=== PATIENT | male | born 1970 ===

== ENCOUNTER 2016-11-18 18:47 | Emergency (ER) | payer SELFPAY ==
--- NOTE | ~2016-11-18 | ER ---
ADMIT: 11/18/2016 RM/LOC: [facility] MR#: [id number] [address] [place] [id number] ROSIBEL YEBOAHSHAMA [address] [place] [address] Emergency Room Report SEX: M AGE: 46 : 1970 DATE: 11/18/2016 CHIEF COMPLAINT: Left shoulder pain. HISTORY OF PRESENT ILLNESS: The patient is a 46-year-old male, states that he was lifting a couch yesterday when he felt a pop in his left shoulder and has had increasing pain with range of motion of that shoulder since then. He states that several years ago he had a shoulder dislocation and ended up having some sort of surgery when he was in [place], but cannot describe it to me. He has had no numbness, tingling, or weakness down the arm, has no loss of strength, but has pain with abduction of the arm at the shoulder. PAST MEDICAL HISTORY: Negative. PAST SURGICAL HISTORY: Left shoulder surgery with a dislocation. SOCIAL HISTORY: Smokes. Denies drug or alcohol use. MEDICATIONS: None. ALLERGIES: NONE. PHYSICAL EXAMINATION: GENERAL: The patient is alert and oriented, in no distress. EXTREMITIES: Examination of his left upper extremity reveals, he has some tenderness on his lateral deltoid and some in his AC joint space. He has no swelling and no skin lesions. He has a good pulse distally in that arm and has no sensory deficit. He has no pain with range of motion of the wrist or elbow. He does have pain with passive and active range of motion of his left shoulder. He has no cervical tenderness. ADMIT: 11/18/2016 RM/LOC: [facility] MR#: [id number] [address] [place] [id number] SHAMA CHAMPAGNE [address] [place] [address] Emergency Room Report SEX: M AGE: 46 : 1970 DIAGNOSTIC DATA: X-rays of the left shoulder revealed no acute abnormality. MEDICAL DECISION MAKING: Based on the patient's mechanism, I believe he has muscle strain or possibly rotator cuff injury. He has no dislocation or fracture at this time. He is off work for the next 2 weeks, so he is told to go home and rest and use ibuprofen 3 times a day and follow up in the next 1- 1/2 to 2 weeks if he does not have significant improvement in his symptoms. He is given Dr. Prajapati for followup as he does not have a doctor, and Dr. Prajapati is on for Orthopedics this evening. DIAGNOSIS: Left shoulder pain. Collin Carranza MD/ florencia JOB #: [id number] CC: Gino Bella MD, Attending Physician Collin Prajapati MD, Family Physician
[~2016-11-18 18:47] MED LIST: TYLENOL DPS325 MG PO
== END 2016-11-18 21:06 | disposition home or self-care (01) ==
LOC: ER 18:47
DX: M25.512 Pain in left shoulder (principal); F17.200 Nicotine dependence, unspecified, uncomplicated; Z98.890 Other specified postprocedural states